=== PATIENT | male | born 1945 | race Caucasian/White ===

== ENCOUNTER → 2017-12-25 | Outpatient (CLI) | payer MEDICARE, OTHER ==
[2016-10-28 19:30] VITALS: BP 156/82
[~2017-12-25] VITALS: Ht 172.7 cm; Wt 95.3 kg
[~2017-12-25] MED LIST: ASPI-612 PO; CARV3.12 PO; CHOL100013 PO; FOLI0.8T33 PO; HYDR12.58 PO; Ibuprofen PO; MULT-208 PO; NEBI2.5T2 PO; OMEG10006 PO; OMEP40CA2 PO; REGADENOSON 0.4 MG/5 ML DISP.SYRIN. IV ONE; SINCALIDE 1.91 MCG in IV NORMAL SALINE 50ML 30 ML IV ONE
--- NOTE | 2017-12-25 10:02 | RAD ---
Right upper quadrant abdominal ultrasound, 12/25/2017: History: Pain and bloating The gallbladder is within normal limits in size. There is no sonographic evidence of cholelithiasis. The gallbladder kaminski are not thickened. No bile duct dilatation is seen. A small slightly hyperechoic nodule is seen superiorly in the right lobe of the liver in a subcapsular location. This corresponds in location to a probable hemangioma delineated on previous CT studies. No other hepatic abnormality is seen. The pancreas and right kidney are unremarkable. IMPRESSION: 1. No significant gallbladder abnormality is detected. 2. Small hepatic hemangioma
--- NOTE | 2017-12-25 10:59 | RAD ---
Hepatobiliary scan 12/25/2017 Indication: Reflux, heartburn. Comparison study: Right upper quadrant ultrasound 12/25/2017 Discussion: Imaging over the abdomen was performed following the intravenous administration of 5.5 mg of technetium 99m labeled Choletec. Following visualization of the gallbladder 1.9 mcg of CCK was administered intravenously and imaging over the abdomen continued. Normal uptake and excretion of radiotracer by the liver to the biliary tree and bowel seen. The gallbladder is initially visualized 10 minutes. Following the administration of CCK gallbladder ejection fraction measures 92% (normal is 35% or greater). Impression: 1. No scintigraphic evidence of cholecystitis. Patent cystic duct. 2. Normal gallbladder ejection fraction
== END | disposition home or self-care (01) ==
LOC: US 07:48
PROVIDERS: ATTEND Internal Medicine Gastroenterology
DX: D18.03 Hemangioma of intra-abdominal structures (principal); K21.9 Gastro-esophageal reflux disease without esophagitis; R12 Heartburn; I10 Essential (primary) hypertension
CPT/HCPCS: 76705; 78226; 96374; 96375; A9537; J2785; J2805

== ENCOUNTER → 2018-01-19 | Outpatient (CLI) | payer MEDICARE, OTHER ==
[2016-10-28 19:30] VITALS: BP 156/82
[~2018-01-19] MED LIST changes: -REGADENOSON 0.4 MG/5 ML DISP.SYRIN. IV ONE; -SINCALIDE 1.91 MCG in IV NORMAL SALINE 50ML 30 ML IV ONE
--- NOTE | 2018-01-19 13:35 | RAD ---
EXAM: Nuclear gastric emptying scan. 01/19/2018 HISTORY: Epigastric pain and bloating COMPARISON: None. TECHNIQUE: Serial static images were obtained over the stomach following oral administration of 2.0 mCi of 99m-Tc sulfur colloid in an egg based meal. FINDINGS: The stomach appears normal in contour. There is no significant clearance of radiotracer from the stomach 60 minutes into the study. Emptying half-time is 412 minutes minutes (normal <90 minutes). Refer to the worksheets for more detail. IMPRESSION: No significant gastric emptying 60 minutes into the study.
== END | disposition home or self-care (01) ==
LOC: NM 09:53
PROVIDERS: ATTEND Internal Medicine Gastroenterology
DX: R10.13 Epigastric pain (principal); R11.0 Nausea; R14.0 Abdominal distension (gaseous); I10 Essential (primary) hypertension
CPT/HCPCS: 78264; A9541